=== PATIENT | male | born 1985 | race Caucasian/White ===

== ENCOUNTER 2016-09-12 23:14 | Emergency (ER) | payer OTHER ==
--- NOTE | 2016-09-12 23:29 | PDOC ---
History of Present Illness - General Stated Complaint: HAND PAIN/[employer] Time Seen by Provider: 09/12/16 23:28 History Source: Patient Exam Limitations: No Limitations - History of Present Illness Occurred: reports: just prior to arrival Upper Extremity Pain Location: left: hand (pain to 4th mc) Extremity Pain Location - Extremity Pain Location Extremity Pain Locations: left: hand (left hand 4th mc) Past History - Travel Traveled outside of the country in the last 30 days: No Close contact w/someone who was outside of country & ill: No - Past Medical History Allergies/Adverse Reactions: Allergies Allergy/AdvReac Type Severity Reaction Status Date / Time No Known Allergies Allergy Verified 09/12/16 23:34 Home Medications: Ambulatory Orders NK [No Known Home Medication] 09/12/16 Review of Systems - Review of Systems Comments:: 09/12/16 23:41 left hand 5th mc pain neg numbness/tingling sensation neg wrist pain neg elbow pain *Physical Exam - Physical Exam Comments: 09/12/16 23:41 Left hand +pain on 4th mc region 2 point sensation intact cap refill <2sec 2+radial pulse left wrist F.R.O.M. 2+ radial pulse neg pain on palp ED Treatment Course - RADIOLOGY Radiology Studies Ordered: Category Date Time Status HAND- LEFT [RAD] Stat Radiology 09/12/16 23:27 Ordered Radiograph Interpretation: 09/12/16 23:42 XRay left hand 4th mid mc fx Progress Note - Progress Note Progress Note: 30 yo [employer] who is right hand dominant presents to the emergency department complaining of pain to the left metacarpal region of the hand. Pt states a person fell onto his left hand. Pt denies ext numbness/tingling sensation. *DC/Admit/Observation/Transfer Diagnosis at time of Disposition: Fracture of left hand Qualifiers: Encounter type: initial encounter Fracture type: closed Qualified Code(s): S62.92XA - Unspecified fracture of left wrist and hand, initial encounter for closed fracture - Discharge Dispostion Disposition: HOME Condition at time of disposition: Improved - Referrals Referrals: Kp Garza MD [Primary Care Provider] - Jamison Nath MD [Staff Physician] - - Patient Instructions Printed Discharge Instructions: DI for a Hand Fracture Additional Instructions: Rest Ice 20 mins on /20 mins off for 48 hours while awake Take tylenol/Motrin as needed for pain Return to the ER for severe/persistent or worsening pain Follow up with your orthopedic surgeon or the one listed on the discharge sheet
[2016-09-12 23:38] VITALS: BP 126/78; PULSE 80; TEMP 97.2; BMI 25.8
== END 2016-09-13 00:15 | disposition home or self-care (01) ==
LOC: JER 23:14
DX: S62.395A Other fracture of fourth metacarpal bone, left hand, initial encounter for closed fracture (principal); W50.0XXA Accidental hit or strike by another person, initial encounter; Y93.89 Activity, other specified; Y92.89 Other specified places as the place of occurrence of the external cause; Y99.8 Other external cause status
CPT/HCPCS: 73130-TC-LT; 99281-25

== ENCOUNTER 2017-06-19 22:51 | Emergency (ER) | payer OTHER ==
[2017-06-19 23:00] VITALS: TEMP 97.6; BMI 30.5
--- NOTE | 2017-06-19 23:40 | PDOC ---
History of Present Illness - General History Source: Patient Exam Limitations: No Limitations - History of Present Illness Initial Comments: 06/20/17 00:07 The patient is a 31 year old male, with no significant past medical history, who presents to the emergency department with right ankle pain s/p twisting his ankle. 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 The patient reports the right ankle pain is made worse with movement or palpation. He denies numbness, tingling or loss of sensation. He denies loss of consciousness. He denies head, neck or back pain. He denies any recent chest pain or shortness of breath. Allergies: NKA PCP: Dr. Hero Laguna <Pavan Pulido - Last Filed: 06/20/17 00:13> - General History Source: Patient Exam Limitations: No Limitations <Filemon Carlson - Last Filed: 06/20/17 00:21> - General Chief Complaint: Injury Stated Complaint: [employer] PO/INJURY Time Seen by Provider: 06/19/17 23:03 Past History <Pavan Pulido - Last Filed: 06/20/17 00:13> - Immunization History Immunization Up to Date: Yes - Suicide/Smoking/Psychosocial Hx Smoking History: Never smoked Have you smoked in the past 12 months: No Information on smoking cessation initiated: No Hx Alcohol Use: No Drug/Substance Use Hx: No Substance Use Type: None <Filemon Carlson - Last Filed: 06/20/17 00:21> - Past Medical History Allergies/Adverse Reactions: Allergies Allergy/AdvReac Type Severity Reaction Status Date / Time No Known Allergies Allergy Verified 06/19/17 22:58 Home Medications: Ambulatory Orders Ibuprofen 600 mg PO Q6H PRN #20 tablet 06/20/17 Oxycodone HCl/Acetaminophen [Percocet 5-325 mg Tablet] 1 tab PO Q6H PRN #15 tablet MDD 4 06/20/17 Review of Systems - Review of Systems Comments:: 06/20/17 00:07 GENERAL/CONSTITUTIONAL: No fever or chills. No weakness. HEAD, EYES, EARS, NOSE AND THROAT: No change in vision. No ear pain or discharge. No sore throat. CARDIOVASCULAR: No chest pain or shortness of breath. RESPIRATORY: No cough, wheezing, or hemoptysis. GASTROINTESTINAL: No nausea, vomiting, diarrhea or constipation. GENITOURINARY: No dysuria, frequency, or change in urination. MUSCULOSKELETAL: +Right ankle pain. No neck or back pain. SKIN: No rash NEUROLOGIC: No headache, vertigo, loss of consciousness, or change in strength/ sensation. ENDOCRINE: No increased thirst. No abnormal weight change. HEMATOLOGIC/LYMPHATIC: No anemia, easy bleeding, or history of blood clots. ALLERGIC/IMMUNOLOGIC: No hives or skin allergy. <Pavan Pulido - Last Filed: 06/20/17 00:13> *Physical Exam - Vital Signs Last Vital Signs Temp Pulse Resp BP Pulse Ox 97.6 F 92 H 20 120/70 98 06/19/17 22:58 06/19/17 22:58 06/19/17 22:58 06/19/17 22:58 06/19/17 22:58 - Physical Exam Comments: 06/20/17 00:07 GENERAL: Awake, alert, and fully oriented, in no acute distress HEAD: No signs of trauma EYES: PERRLA, EOMI, sclera anicteric, conjunctiva clear NECK: Normal ROM, supple, no lymphadenopathy, JVD, or masses EXTREMITIES: +Swelling and edema above right ankle. +Tenderness to palpation along medial and lateral malleolus of right ankle. 2+ dorsalis pedis pulse sensation intact throughout. Able to move right ankle. No tenderness along 5th metatarsal. No tenderness to the right knee. Full range of the right knee. NEUROLOGICAL: Cranial nerves II through XII grossly intact. Normal speech. SKIN: Warm, Dry, normal turgor, no rashes or lesions noted. <Pavan Pulido - Last Filed: 06/20/17 00:13> - Vital Signs Last Vital Signs Temp Pulse Resp BP Pulse Ox 97.6 F 92 H 20 120/70 98 06/19/17 22:58 06/19/17 22:58 06/19/17 22:58 06/19/17 22:58 06/19/17 22:58 <Filemon Carlsno - Last Filed: 06/20/17 00:21> Procedures - Splinting Splint Location: Right: Ankle Pre-Proc Neuro Vasc Exam: normal Hand-Made Type: orthoglass Splint Type: Yes: Posterior Post-Proc Neuro Vasc Exam: normal Serg Bandage: 4" Sling: No Complications: No <Filemon Carlson - Last Filed: 06/20/17 00:21> ED Treatment Course - RADIOLOGY Radiology Studies Ordered: Category Date Time Status ANKLE & FOOT-RIGHT* [RAD] Stat Radiology 06/19/17 23:00 Taken <Filemon Carlson - Last Filed: 06/20/17 00:21> Medical Decision Making - Medical Decision Making 06/19/17 23:38 A portion of this note was documented by scribe services under my direction. I have reviewed the details of the note, within reason, and agree with the documentation with the following case summary and management plan written by me. Patient treated in the ED. Nursing notes are reviewed and incorporated into the medical decision-making. Vital signs reviewed. Vital Signs Temp Pulse Resp BP Pulse Ox 97.6 F 92 H 20 120/70 98 06/19/17 22:58 06/19/17 22:58 06/19/17 22:58 06/19/17 22:58 06/19/17 22:58 31 year old male, [employer], hx of Left hand surgery ( ortho injury) and cholecystectomy p/w R ankle pain. The patient was at the [employer] when a person had accidentally fell and landed on his right ankle. The patient is neurovascularly intact and c/o R ankle pain. On xray, the patient appears to have a right bimalleolar ankle fracture. Will need to make nonweightbearing and place a posterior U splint. Pt will need ortho follow up for surgery evaluation. 06/20/17 00:17 Posterior U splint applied. Crutches given. Pt states that he has an orthopedist that he will call to schedule a follow up appointment. I discussed the physical exam findings, ancillary test results and final diagnoses with the patient. I answered all of the patient's questions. The patient was satisfied with the care received and felt comfortable with the discharge plan and treatment plan. The patient will call their primary care physician within 24 hours to arrange follow-up and will return to the Emergency Department with any new, persistant or worsening symptoms. <Filemon Carlson - Last Filed: 06/20/17 00:21> *DC/Admit/Observation/Transfer - Attestations Scribe Attestion: 06/20/17 00:08 Documentation prepared by Pavan Pulido, acting as electromedical service engineer for Filemon Carlson MD. <Pavan Pulido - Last Filed: 06/20/17 00:13> - Discharge Dispostion Admit: No <Filemon Carlson - Last Filed: 06/20/17 00:21> Diagnosis at time of Disposition: Ankle fracture, right Qualifiers: Encounter type: initial encounter Fracture type: closed Qualified Code(s): S82.891A - Other fracture of right lower leg, initial encounter for closed fracture; S82.891A - Other fracture of right lower leg, initial encounter for closed fracture - Discharge Dispostion Disposition: HOME Condition at time of disposition: Stable - Prescriptions Prescriptions: Ibuprofen 600 mg PO Q6H PRN #20 tablet PRN Reason: Pain Oxycodone HCl/Acetaminophen [Percocet 5-325 mg Tablet] 1 tab PO Q6H PRN #15 tablet MDD 4 PRN Reason: Severe Pain - Referrals Referrals: Hero Laguna MD [Primary Care Provider] - Alfredo Polanco MD [Staff Physician] - - Patient Instructions Printed Discharge Instructions: DI for Ankle Fracture Additional Instructions: Please do not bear weight, use crutches. Elevate the leg as much as you can. Ice as needed. ibuprofen 600 mg every 6 hours as needed for pain. For additional pain relief, take a tablet of percocet every 6 to 8 hours as needed. Follow up with an orthopedist for an evaluation for potential surgery.
[2017-06-20 00:30] VITALS: BP 106/62; PULSE 89
== END 2017-06-20 00:32 | disposition home or self-care (01) ==
LOC: JER 22:51
PROC: 2W3QX1Z Immobilization of Right Lower Leg using Splint (ICD-10-PCS; principal; 2017-06-19)
DX: S82.891A Other fracture of right lower leg, initial encounter for closed fracture (principal); W03.XXXA Other fall on same level due to collision with another person, initial encounter; Y93.89 Activity, other specified; Y92.59 Other trade areas as the place of occurrence of the external cause; Y99.0 Civilian activity done for income or pay
CPT/HCPCS: 73610-TC-RT; 73630-TC-RT; 99282-25